=== PATIENT | female | born 1955 | race Caucasian/White ===

== ENCOUNTER 2020-04-10 08:21 | Emergency (ER) | payer BC, SELFPAY ==
--- NOTE | ~2020-04-10 | XR_ITS ---
EXAMINATION: XR chest 2V DATE: 04/10/2020 08:56 INDICATION: Intermittent chest pain and tightness TECHNIQUE: PA and lateral views of the chest were obtained. COMPARISON: Chest radiograph dated 11/16/13 FINDINGS: The lungs remain clear with no focal airspace opacities, pulmonary edema, pleural effusion or pneumot horax. The cardiomediastinal silhouette is normal. Multiple surgical clips at the right chest/axilla. Mild thoracic kyphosis with moderate spondylosis. IMPRESSION: 1. No acute cardiopulmonary disease. Reviewed, dictated and finalized at location A.
[2020-04-10 08:27] VITALS: BP 158/81; PULSE 112; RESP 18; TEMP 36.9; O2SAT 94
[2020-04-10 08:31] VITALS: PULSE 109
--- NOTE | 2020-04-10 08:34 | ECG_ITS ---
Measurements Intervals [place] Rate: 112 P: 50 DC: 124 QRS: 80 QRSD: 90 T: 43 QT: 325 QTc: 445 Interpretive Statements SINUS TACHYCARDIA MINIMAL Q WAVES- INFERIOR LEADS BASELINE ARTIFACT- III ABNORMAL ECG Electronically Signed On 04-10-2020 8:36:37 CDT by Dorian Fry D.O.
--- NOTE | 2020-04-10 08:39 | ED.CHESTPAIN ---
HPI - Chest Pain General Chief Complaint: Chest Pain Stated Complaint: cp Time Seen by Provider: 04/10/20 08:27 History of Present Illness HPI narrative: Patient presents with her granddaughter for chest pain since yesterday. She points to the lower sternum and says it goes to the right. Episodes last about 3 seconds, and occur about every 10-minute. Associated with nausea and sweats, but not shortness of breath or fever. No cough. She has had diarrhea for a week. She gauges the pain about 6 out of 10 at its greatest. She had an episode during her evaluation, and did not appear to be in any distress. She quit smoking, does not drink alcohol, and does not do marijuana. 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 She has a history of breast cancer, type 2 diabetes, and hyperlipidemia. MD complaint: chest pain Onset (ago): day(s) Timing of current episode: episodic Prior episodes: No Onset: during rest Pain location: substernal and right chest Pain radiation: none Severity: mild Quality: sharp Relieving factors: nothing Exacerbating factors: nothing Associated symptoms: nausea and diaphoresis Treatment prior to arrival: none Risk Factors Coronary artery disease risk factors: diabetes, smoking history and hyperlipidemia Pulmonary embolism risk factors: morbid obesity Related Data On Oral Contraceptives: No Home Medications Medication Instructions Recorded Confirmed citalopram 10 mg tablet 10 mg PO DAILY 09/20/19 02/11/20 Allergies Allergy/AdvReac Type Severity Reaction Status Date / Time No Known Allergies Allergy Verified 04/10/20 08:36 Review of Systems Review of Systems: Narrative: CONSTITUTIONAL: Denies fever, chills, but has had sweats. EYES: Denies visual changes, redness, or discharge. ENT: Denies rhinorrhea, congestion, sore throat, or otalgia. CARDIOVASCULAR: She has chest pain, but not palpitations, or edema. RESPIRATORY: Denies cough or dyspnea. GASTROINTESTINAL: Denies abdominal pain, nausea, vomiting, or diarrhea. GENITOURINARY: Denies dysuria or hematuria. SKIN: Denies rash or itching. MUSCULOSKELETAL: Denies back pain, joint pain, or myalgia. NEUROLOGIC: Denies headache, numbness, or weakness. . All systems reviewed & are unremarkable except as noted in HPI and below PMFSH Past Medical History Medical History Body mass index (BMI) 40.0-44.9, adult Controlled type 2 diabetes mellitus without complication Malignant neoplasm of unspecified site of left female breast Surgical History Surgical History (Updated 04/10/20 @ 08:43 by Marilee Cazares MD) History of hysterectomy History of lumpectomy of right breast Social History Social History (Updated 04/10/20 @ 08:43 by Marilee Cazares MD) Smoking status: Former smoker Second hand tobacco smoke exposure: No Smoking end date: 08/29/13 Alcohol intake: never Substance use: never Gender identity (if verbalized by the patient): Female Exam Narrative: Exam Narrative: GENERAL: Well-appearing, well-nourished, and in no acute distress. Overweight HEAD: Normocephalic, atraumatic. EYES: PERRLA and EOMI. ENT: Nares clear, no rhinorrhea or epistaxis. Mucous membranes moist. NECK: Supple. CHEST: Clear to auscultation. No respiratory distress. HEART: Regular rate and rhythm. No murmur heard. Normal peripheral pulses. ABDOMEN: Soft, nontender, nondistended, normal active bowel sounds. EXTREMITIES: Normal range of motion. No edema. SKIN: Warm, dry, no rash. NEURO: No focal deficits. Alert and oriented x3. PSYCH: Normal mood and affect. Const: General: no acute distress and alert Orientation/consciousness: patient oriented x3 Course Reevaluation(s) Reevaluation #1: Went in to check on the patient. She refused the GI cocktail. She says viscous liquids cause her to gag and vomit. She has not had a chest pain since she has been here. She does not want to wait for the 3-hour trop
[2020-04-10 08:43] LABS: Basophils Percent Auto 0.5 % (0.2-1.2); Eosinophils Percent Auto 0.6 % (0-4.4); Hematocrit 41.8 % (37.0-47.0); Hemoglobin 13.9 g/dL (12.0-15.0); Immature Granulocyte Absolute 0.03 K/mm3 (0.00-0.031); Immature Granulocyte Percent A 0.5 % (0-0.5); Lymphocytes Absolute Auto 0.81 K/mm3 (0.9-3.2); Lymphocytes Percent Auto 12.9 % (18.3-44.2); Mean Corpuscular HGB Conc 33.3 g/dl (32-36); Mean Corpuscular Volume 96.1 fl (80-100); Mean Platelet Volume 9.9 fl (7.4-10.4); Monocytes Absolute Auto 0.5 K/mm3 (0.1-0.6); Monocytes Percent Auto 8.4 % (2.6-8.5); Neutrophils Absolute Auto 4.9 K/mm3 (1.3-6.7); Neutrophils Percent Auto 77.1 % (45.5-73.1); Platelet Count Result 197 k/mm3 (150-375); Red Blood Count 4.35 M/mm3 (4.2-5.4); Red Cell Distribution Width 13.3 % (11.5-14.5); White Blood Count 6.3 K/mm3 (4.5-10.0)
[2020-04-10 08:53] LABS: Prothrombin Time 12.6 Seconds (11.1-14.7)
[2020-04-10 08:54] LABS: Partial Thromboplastin Time 29.5 SECONDS (22.3-36.8)
[2020-04-10 09:00] VITALS: PULSE 99; RESP 25; O2SAT 94
[2020-04-10 09:07] VITALS: BP 128/70; PULSE 99; RESP 26; O2SAT 94
[2020-04-10 09:09] LABS: Alanine Aminotransferase 62 U/L (4-35); Albumin Level 4.2 g/dL (3.5-5.1); Alkaline Phosphatase 138 U/L (38-126); Anion Gap 12 mmol/L (8-16); Aspartate Amino Transferase 76 U/L (14-36); Bilirubin,Total 0.5 mg/dL (0.2-1.3); Blood Urea Nitrogen 10 mg/dL (7-17); Calcium 8.9 mg/dL (8.4-10.2); Carbon Dioxide 27 mmol/L (22-30); Chloride 95 mmol/L (98-107); Estimated CRCL calculation 96 ml/min; Estimated Glomerular Filt Rate > 60; Glucose 259 mg/dL (65-105); Sodium 134 mmol/L (137-145)
[2020-04-10 09:10] LABS: Troponin I < 0.012 ng/mL (0.000-0.034)
[2020-04-10] MEDS: FAMOTIDINE 20 MG/2 ML VIAL IV PUSH (09:30)
--- NOTE | 2020-04-10 09:32 | PC.NURSE ---
Pt is refusing GI cocktail mixture at this time, states I don't have any pain, and I'm afraid that I might vomit if I take it. I have a issue with fluids .
== END 2020-04-10 09:56 | disposition home or self-care (01) ==
PROVIDERS: Emergency Provider Emergency Medicine; PCP Internal Medicine
DX: R07.89 Other chest pain (principal); E11.9 Type 2 diabetes mellitus without complications; R94.5 Abnormal results of liver function studies; R00.0 Tachycardia, unspecified; E66.9 Obesity, unspecified; Z68.41 Body mass index [BMI] 40.0-44.9, adult; Z85.3 Personal history of malignant neoplasm of breast
CPT/HCPCS: 36415; 71046; 80053; 84484; 85025; 85610; 85730; 93005; 96374; 99284; A9270

== ENCOUNTER → 2021-07-13 10:25 | Outpatient (CLI) | payer BC, SELFPAY ==
--- NOTE | ~2021-07-13 | XR_ITS ---
XR chest 2V DATE: 07/13/2021 10:38 INDICATION: Shortness of breath for months TECHNIQUE: PA and lateral chest COMPARISON: 04/10/2020 2 view chest FINDINGS: Normal heart size. No hilar or mediastinal enlargement. No pulmonary infiltrate or consolid ation, pleural effusion or pulmonary vascular congestion or pneumothorax. There is mild dextroscoliosis of the thoracic spine and degenerative spurring. Surgical clips, right axillary area, consistent with axillary node dissection. Diffuse osteopenia. IMPRESSION: No active cardiopulmonary disease Reviewed, dictated and finalized at location A. ING WORKER
== END ==
PROVIDERS: PCP Family Medicine; Visit Provider Family Medicine
DX: R06.02 Shortness of breath (principal)
CPT/HCPCS: 71046

== ENCOUNTER 2021-07-31 13:23 | Emergency (ER) | payer BC, SELFPAY ==
[2021-07-31] VITALS (8 sets, daily range): BP systolic 128–151; BP diastolic 63–73; PULSE 80–93; RESP 14–20; TEMP 36.1–37; O2SAT 89–97
--- NOTE | ~2021-07-31 | CT_ITS ---
EXAMINATION:CT diagnostic chest wo con DATE: 07/31/2021 21:23 INDICATION: Shortness of breath and cough. TECHNIQUE: Computed tomography (CT) of the chest was performed without intravenous contrast. Automate d exposure control and iterative reconstruction technique were employed. The dose-length product (DLP ) was 915.22 mGy-cm. COMPARISON: Chest CT 04/02/2015 FINDINGS: There is mild emphysema. There is mild scarring at the lung apices. No pleural effusion. Th e heart size is normal. There are coronary artery calcifications. No pericardial effusion. There is d iffuse hepatic steatosis. There is a 3.8 cm mass containing fat in right adrenal gland, consistent wi th a myelolipoma. There are surgical clips in right axilla. There is moderate thoracic spondylosis. T here is a hemangioma in L1 vertebral body. IMPRESSION: 1. Mild emphysema. Reviewed, dictated and finalized at location A. INAL CARMAN IMPRESSION: 1. Mild emphysema.
--- NOTE | ~2021-07-31 | XR_ITS ---
EXAMINATION: XR chest 2V DATE: 07/31/2021 18:30 INDICATION: Shortness of breath. TECHNIQUE: Frontal and lateral views of the chest were obtained. COMPARISON: Chest 2 views 07/13/2021, chest CT 04/02/2015 FINDINGS: The chest demonstrates clear lungs without pneumonia, pleural effusion, or pneumothorax. Th e heart size is normal. There are surgical clips in right axilla. IMPRESSION: 1. No acute cardiopulmonary disease. Reviewed, dictated and finalized at location A. LING MACHINE OPERATOR
--- NOTE | 2021-07-31 18:20 | ECG_ITS ---
Measurements Intervals [place] Rate: 80 P: 49 UT: 155 QRS: 60 QRSD: 93 T: 31 QT: 371 QTc: 428 Interpretive Statements SINUS RHYTHM LOW QRS VOLTAGE IN PRECORDIAL LEADS CONSIDER INFERIOR INFARCT, AGE INDETERMINATE BASELINE WANDER- V1, V6 ABNORMAL ECG Electronically Signed On 07-31-2021 20:10:12 AUDIOLOGIST by Dorian Fry D.O.
--- NOTE | 2021-07-31 18:22 | ED.SOB ---
HPI - SOB/Dyspnea General Chief Complaint: Shortness of Breath/Dyspnea Stated Complaint: sob Time Seen by Provider: 07/31/21 18:12 Source: patient, RN notes reviewed and old records reviewed Mode of arrival: ambulatory Limitations: no limitations History of Present Illness HPI Narrative: This is a 65 year old female former smoker who presents for evaluation of shortness of breath. She has been short of breath for over 1 month. She is short of breath all the time and it is worse at night. She was unable go to sleep last night and lay flat due to her shortness of breath. She reports having to walk around last night. She also states she is short of breath with exertion. She denies having chest pain but she feels like she can not take a deep breath. She denies fever, chills, night sweats, weight gain or weight loss. She thinks symptoms started around the time she received her covid vaccination. She was evaluated by her PCP 2 weeks ago for her symptoms and she was prescribed an albuterol inhaler. Her symptoms having continue to worsen. She denies leg swelling or calf pain. She has mild cough. Related Data Allergies Allergy/AdvReac Type Severity Reaction Status Date / Time No Known Allergies Allergy Verified 07/13/21 10:06 Review of Systems Review of Systems: All systems reviewed & are unremarkable except as noted in HPI and below PMFSH Past Medical History Medical History (Updated 08/01/21 @ 00:01 by Renny Live) Body mass index (BMI) 40.0-44.9, adult Controlled type 2 diabetes mellitus without complication Malignant neoplasm of unspecified site of left female breast Surgical History Surgical History History of hysterectomy History of lumpectomy of right breast Family History Family History Other Diabetes mellitus Social History Social History Smoking status: Former smoker Second hand tobacco smoke exposure: No Smoking end date: 08/29/13 Alcohol intake: never Substance use: never Gender identity (if verbalized by the patient): Female Exam Const: General: alert Nutritional Appearance: obese Orientation/consciousness: patient oriented x3 HENMT: Head: normocephalic and atraumatic Face and sinus: normal facial exam, sinuses nontender and face symmetric Mouth: Yes Normal oral and palatal mucosa present, Yes lip normal, Yes oropharynx normal and Yes moist mucous membranes Throat: posterior oropharynx normal, tonsils normal and uvula midline Eyes: EOM: EOMs intact bilaterally Chest: Chest palpation & inspection: normal inspection of the chest Resp: Effort & Inspection: normal respiratory effort, no retractions and no use of accessory muscles GI: Inspection: distended GI Palp: Yes Soft to palpation, No Tenderness to palpation present (GI) and No Guarding due to palpation present (GI) Auscultation: normal bowel sounds Skin: General skin exam: normal color Rashes: no rashes Neuro: General: patient oriented x3, moves all extremities and CN's II-XI intact bilaterally Extrem: General: normal to inspection Psych: Mental Status: mental status grossly normal Affect: normal affect Course Reevaluation(s) Reevaluation #1: I Discussed with patient CT findings. She will need evaluation for COPD. She is not using albuterol regularly. She will start using and we will start steroids. She will follow up with PCP on Tuesday. Date: 07/31/21 Time: 21:42 Vital Signs Vital signs: Vital Signs Temperature 97.0 F L 07/31/21 13:36 Pulse Rate 80 07/31/21 13:36 Respiratory Rate 16 07/31/21 13:36 Blood Pressure 144/63 H 07/31/21 13:36 Pulse Oximetry 95 07/31/21 13:36 Temperature 98.6 F 07/31/21 17:44 Pulse Rate 81 07/31/21 21:27 Respiratory Rate 14 07/31/21 21:27 Blood Pressure 150/68 H 07/31/21 21:27 Pulse
--- NOTE | 2021-07-31 19:10 | PC.NURSE ---
Assumed care of pt at this time. Pt alert and upright on stretcher, no pain.
[2021-07-31 19:57] LABS: INR 1.1; Partial Thromboplastin Time 22.3 SECONDS (22.3-36.8)
[2021-07-31 20:00] LABS: D Dimer 0.32 ug/mL (<0.48)
[2021-07-31 20:10] LABS: Alanine Aminotransferase 36 U/L (4-35); Albumin Level 4.7 g/dL (3.5-5.1); Alkaline Phosphatase 165 U/L (38-126); Anion Gap 7 mmol/L (8-16); Aspartate Amino Transferase 30 U/L (14-36); Bilirubin,Total 0.5 mg/dL (0.2-1.3); Blood Urea Nitrogen 9 mg/dL (7-17); Calcium 9.6 mg/dL (8.4-10.2); Carbon Dioxide 36 mmol/L (22-30); Chloride 92 mmol/L (98-107); Estimated CRCL calculation 76 ml/min; Estimated Glomerular Filt Rate > 60; Glucose 130 mg/dL (65-110); Sodium 135 mmol/L (137-145)
[2021-07-31 20:21] LABS: NT Pro B Type Natriuretic Pept 65 pg/mL (5-100); Troponin I < 0.012 ng/mL (0.000-0.034)
[2021-07-31 20:56] LABS: Alveolar/Arterial O2 Gradient 30.3 mmHg; Base Excess ABG 4.6 mEq/l (+/-2.0); Carboxyhemoglobin 1.2 % THb (0-2.0); Fractional Inspired Oxygen 21 %; HCO3 ABG 29.6 mEq/l (22.0-26.0); Methemoglobin ABG 0.1 %THb (0-1.5); Oxygen Saturation ABG 93.3 % (95.0-100.0); PCO2 ABG 45.3 mmHg (35.0-45.0); PO2 ABG 65.2 mmHg (80.0-100.0); Reduced Hemoglobin 6.7 %THb (0-5.0); Total Hemoglobin 14.7 g/dL (12.0-18.0); pH ABG 7.433 (7.350-7.450)
[2021-07-31 20:57] LABS: Device ROOM AIR; Modified Allen's Test Pass; Site Drawn LEFT RADIAL
[2021-07-31 20:58] LABS: Basophils Percent Auto 0.3 % (0.2-1.2); Eosinophils Absolute Auto 0.1 K/mm3 (0-0.3); Eosinophils Percent Auto 1.2 % (0-4.4); Hematocrit 43.5 % (37.0-47.0); Hemoglobin 13.4 g/dL (12.0-15.0); Immature Granulocyte Absolute 0.05 K/mm3 (0.00-0.031); Immature Granulocyte Percent A 0.4 % (0-0.5); Lymphocytes Absolute Auto 1.78 K/mm3 (0.9-3.2); Lymphocytes Percent Auto 15.1 % (18.3-44.2); Mean Corpuscular HGB Conc 30.8 g/dl (32-36); Mean Corpuscular Hemoglobin 31.9 pg (26-34); Mean Corpuscular Volume 103.6 fl (80-100); Mean Platelet Volume 9.2 fl (7.4-10.4); Monocytes Absolute Auto 0.7 K/mm3 (0.1-0.6); Monocytes Percent Auto 5.7 % (2.6-8.5); Neutrophils Absolute Auto 9.1 K/mm3 (1.3-6.7); Neutrophils Percent Auto 77.3 % (45.5-73.1); Platelet Count Result 274 k/mm3 (150-375); Red Cell Distribution Width 13.2 % (11.5-14.5); White Blood Count 11.8 K/mm3 (4.5-10.0)
== END 2021-07-31 22:14 | disposition home or self-care (01) ==
PROVIDERS: Emergency Provider General Practice; PCP Internal Medicine
DX: R06.00 Dyspnea, unspecified (principal); J43.9 Emphysema, unspecified; E11.9 Type 2 diabetes mellitus without complications; Z87.891 Personal history of nicotine dependence; Z85.3 Personal history of malignant neoplasm of breast; Z90.710 Acquired absence of both cervix and uterus
CPT/HCPCS: 36415; 36600; 71046; 71250; 80053; 82375; 82805; 83050; 83880; 84484; 85025; 85380; 85610; 85730; 93005; 99284

== ENCOUNTER 2021-08-28 08:07 | Outpatient (CLI) | payer BC, SELFPAY ==
--- NOTE | 2021-08-28 11:52 | WPDPFTINT ---
PFT Procedure Performed PFT Procedure Performed Spirometry with Pre/Post Bronchodilator Plethysmography (Lung Vol) Diffusing Cap (DLCO) Flow Vol Loop PFT Interpretation This is a pulmonary function test with pre and post-bronchodilator spirometry, plethysmography and diffusing capacity. The test was performed and results interpreted in accordance with the 2019 and 2005 ATS/ERS Task Force guidelines respectively using the Global Lung Function Initiative-2012 reference equations. Patient demonstrated good effort and cooperation. Reproducibility criteria were met. The quality of the pre bronchodilator spirometry maneuver was Grade A and post bronchodilator spirometry maneuver was Grade A. Findings: Spirometry: there is decreased maximal expiratory airflow at low lung volumes with a mildly concaved expiratory flow tracing. The pre bronchodilator FVC is 2.16 L, 62% predicted. The pre bronchodilator FEV1 is 1.65 L, 61% predicted. The FEV1: FVC ratio 76%. The post bronchodilator FVC is 2.20 L, representing a 2% increase. The post bronchodilator FEV1 is 1.66 L, representing 1% increase. The post bronchodilator FEV the 1: FVC ratio 75%. Plethysmography: The total lung capacity is 4.55 L, 80% predicted. The functional residual capacity is 2.73 L, 84% predicted. The residual volume is 2.33 L, 102% predicted. Diffusion capacity: The absolute diffusion capacity is 19.7, 87% predicted. The diffusing capacity corrected for alveolar volume is 5.75, 137% predicted. Impression: There is a combined obstructive and restrictive ventilatory abnormality. There are no guidelines to assign the severity of obstruction and restriction with a combined abnormality. In my opinion, given the mildly concave expiratory flow tracing and normal FEV1: FVC ratio and mild restrictive abnormality I would state there is a mild obstructive abnormality and a mild restrictive abnormality resulting in a moderately decreased FEV1. There is no significant improvement after inhaling a single dose of albuterol. The absolute diffusing capacity is normal and is increased when corrected for alveolar volume. There are no prior studies for comparison
== END 2021-08-28 08:08 | disposition home or self-care (01) ==
PROVIDERS: PCP Internal Medicine; Visit Provider Internal Medicine
DX: R06.02 Shortness of breath (principal); R94.2 Abnormal results of pulmonary function studies
CPT/HCPCS: 94060; 94726; 94729

== ENCOUNTER 2021-09-10 09:32 | Outpatient (CLI) | payer BC, SELFPAY ==
--- NOTE | ~2021-09-10 | XR_ITS ---
EXAMINATION: XR barium swallow modified EXAM DATE: 09/10/2021 10:06 INDICATION: R13.10 - Dysphagia, unspecified. TECHNIQUE: Modified barium esophagram was performed by speech pathologist with radiologist Dr. Raymundo Moreno present to administered fluoroscopy. Speech pathologist administered barium in varying consis tencies as per speech pathologist documentation. This was recorded on tape. There was total fluorosc opic time of 0.7 minutes. The DAP for this procedure was 1.13 Gycm2. A total of 1 images sent to [facility] from the exam. FINDINGS: Oral stage: Adequate function. Pharyngeal phase: Adequate function. Laryngeal penetration: None. Aspiration: None. Laryngeal sensitivity: Present. IMPRESSION: Normal modified esophagram exam. Please refer to speech pathologist findings and specifi c feeding recommendations. Reviewed, dictated and finalized at location A. ING AND JOINING SUPERVISOR IMPRESSION: Normal modified esophagram exam. Please refer to speech pathologis t findings and specific feeding recommendations.
--- NOTE | 2021-09-11 07:59 | STOPEVAL ---
MODIFIED BARIUM SWALLOW EVALUATION: Thank you for referring Amy Javed to [facility].? Attending Provider: Lizandro Sosa MD Fax #: [phone] Evaluation Outpatient Past Medical History Past Medical History Source of Past Medical History Patient Gastrointestinal History Hx Gastroesophageal Reflux Disease Yes Modified Barium Swallow Evaluation Recent Swallowing History Reports Dysphagia Yes: choking sensation but not always during eating Duration of Dysphagia few months Other Factors Impacting Dysphagia None History of Pneumonia No Reported Difficult Consistencies Unable to Identify Intake Method Prior to Swallow Oral Evaluation Diet Prior to Swallow Evaluation Regular, Level 7 Liquid Consistency Prior to Swallow Thin (0) Evaluation Consistency Solid Consistency Method of Presentation Spoon Oral Preparatory Symptoms None Oral Phase Symptoms None Pharyngeal Phase Symptoms None Severity of Vallecular Residue None - 0% No Residue Severity of Pyriform Sinus Residue None - 0% No Residue 8 Point Laryngeal Penetration-Aspiration Material Does Not Enter Airway Scale Cervical/Esophageal Symptoms None Mixed Consistency Method of Presentation Spoon Oral Preparatory Symptoms None Oral Phase Symptoms None Pharyngeal Phase Symptoms None Severity of Vallecular Residue None - 0% No Residue Severity of Pyriform Sinus Residue None - 0% No Residue 8 Point Laryngeal Penetration-Aspiration Material Does Not Enter Airway Scale Cervical/Esophageal Symptoms None Pureed Consistency Method of Presentation Spoon Oral Preparatory Symptoms None Oral Phase Symptoms None Pharyngeal Phase Symptoms None Severity of Vallecular Residue None - 0% No Residue Severity of Pyriform Sinus Residue None - 0% No Residue 8 Point Laryngeal Penetration-Aspiration Material Does Not Enter Airway Scale Cervical/Esophageal Symptoms None Thin Uncontrolled 2 Method of Presentation Straw Oral Preparatory Symptoms None Oral Phase Symptoms None Pharyngeal Phase Symptoms Within Functional Limits, Laryngeal Penetration Severity of Vallecular Residue None - 0% No Residue 8 Point Laryngeal Penetration-Aspiration Material Enters the Airway, Scale Remains Above Vocal Folds, is Ejected Pharyngeal Phase Comments flash penetration: normally occurring as it was immediately cleared without risk of aspiration Cervical/Esophageal Symptoms None Thin Uncontrolled 1 Method of Presentation Cup Oral Preparatory Symptoms None
== END 2021-09-10 09:33 | disposition home or self-care (01) ==
LOC: ANHIMG 09:33
PROVIDERS: PCP Internal Medicine; Visit Provider Internal Medicine
DX: R13.10 Dysphagia, unspecified (principal)
CPT/HCPCS: 92611

== ENCOUNTER → 2022-01-27 12:17 | Outpatient (CLI) | payer BC, SELFPAY ==
--- NOTE | ~2022-01-27 | XR_ITS ---
XR knee LT min 4V 01/27/2022 12:55 Indication: Left knee pain Procedure: 5 views left knee Comparison: No prior studies Findings: There is mild tricompartment osteoarthritis. Small joint effusion. Osteopenia. No acute fra cture or traumatic malalignment. No foreign bodies. Impression: 1: Mild osteoarthritis of the left knee. 2: Small knee effusion. Reviewed, dictated and finalized at location A. Impression: 1: Mild osteoarthritis of the left knee. 2: Small knee effusion.
== END ==
PROVIDERS: PCP Internal Medicine; Visit Provider Internal Medicine
DX: M17.12 Unilateral primary osteoarthritis, left knee (principal); M25.462 Effusion, left knee
CPT/HCPCS: 73564

== ENCOUNTER 2023-08-25 00:08 | Day surgery (SDC) | payer BC, SELFPAY ==
[2023-08-03 14:28] VITALS: BMI 40.4
--- NOTE | 2023-08-23 12:00 | SUR.PREOP ---
Patient called regarding upcoming procedure. Reviewed preop instructions, appointment times, and procedure prep.
--- NOTE | 2023-08-24 18:10 | PM.HPGS ---
History of Present Illness History of Present Illness Consent: Risks, benefits, and alternatives have been discussed and questions answered. Patient agrees to proceed with procedure. Chief complaint: hx colon polyps, hx of colon ca Narrative: Amy Javed is a 67 year old female Referred for colon cancer screening. In 2016 she had 8 polyps removed, Most of which were adenomatous. Review of Systems Review of Systems: All systems reviewed & are unremarkable except as noted in HPI and below PMFSH Past Medical History Medical History Body mass index (BMI) 40.0-44.9, adult Controlled type 2 diabetes mellitus without complication Malignant neoplasm of unspecified site of left female breast Surgical History Surgical History History of hysterectomy History of lumpectomy of right breast Family History Family History Other Diabetes mellitus Social History Social History Years smoked: 40 Smoking status: Former smoker Tobacco type: cigarettes Second hand tobacco smoke exposure: No Smoking end date: 08/29/13 Alcohol intake: never Substance use: never Substance use type: does not use Current Housing: Decline to Answer Concerned About Future Housing: Decline to Answer Difficulty Paying Gas/Electric Bills: Decline to Answer Difficulty Paying for Meds: Decline to Answer Currently Unemployed: Decline to Answer Education: Decline to Answer Difficulty w/ Childcare or Family Care: Decline to Answer Living arrangements: with family Gender identity (if verbalized by the patient): Female Spiritual care concerns: No Meds Home Medications and Allergies Home Medications Medication Instructions Recorded Confirmed Type blood sugar diagnostic (Contour #200 ea 11/08/19 08/25/23 Rx Next Test Strips) lancets 28 gauge (1st Tier Unilet #200 ea 06/23/20 08/25/23 Rx ComforTouch Lancet) famotidine 20 mg tablet (Pepcid) 20 mg PO DAILY #30 tabs 06/24/20 08/25/23 Rx citalopram 10 mg tablet 10 mg PO DAILY #90 tabs 06/14/23 08/25/23 Rx buspirone 10 mg tablet 10 mg PO BID #180 tabs 07/06/23 08/25/23 Rx metformin 1,000 mg tablet 1,000 mg PO BID #180 tabs 07/06/23 08/25/23 Rx dulaglutide 1.5 mg/0.5 mL 1.5 mg (0.5 mL) subcut WEEKLY #2 mL 07/18/23 08/25/23 Rx subcutaneous pen injector albuterol sulfate 90 mcg/actuation 2 puff inhalation Q4H PRN 08/03/23 08/25/23 History aerosol inhaler Shortness Of Breath aspirin 81 mg tablet 81 mg PO DAILY 08/03/23 08/25/23 History atorvastatin 40 mg tablet 40 mg PO DAILY #90 tabs 08/05/23 08/25/23 Rx Allergies Allergy/AdvReac Type Severity Reaction Status Date / Time No Known Allergies Allergy Verified 08/25/23 08:09 Exam Resp: Auscultation: clear to auscultation bilaterally Cardio: Rate: regular rate Rhythm: regular rhythm GI: GI Palp: Yes Soft to palpation and No Tenderness to palpation present (GI) Assessment and Plan Assessment and plan (1) Colon cancer screening: Code(s): Z12.11 - Encounter for screening for malignant neoplasm of colon Status: Acute Assessment and Plan: Colonoscopy with possible biopsy or polypectomy or cautery or injection of substances.
[2023-08-25 08:10] VITALS: BP 158/88; PULSE 113; RESP 20; TEMP 36.8; O2SAT 90; BMI 41.4
--- NOTE | 2023-08-25 08:14 | SUR.PREOP ---
Notified Dr. Moya of O2 sat of 89-92% on room air.
[2023-08-25 08:18] LABS: Glucose Point of Care 140 mg/dl (65-105)
[2023-08-25] MEDS: LACTATED RINGERS 1,000 ML 150 ML IV CONT (08:23)
--- NOTE | 2023-08-25 08:50 | WPDANESEPPF ---
Anes - Initial Pre Proc Eval Procedure: Operation Date: 08/25/23 09:30 Proposed Procedures p Colonoscopy - Yordan Trujillo MD Date/Time: 08/25/23 08:50 Surgeon: Yordan Trujillo MD Pre Op Diagnosis: hx colon polyps, hx of colon ca Patient Data Age: 67 Gender: F Height: 1.73 m Weight: 123.7 kg Last Vital Signs Temp 98.2 F 08/25/23 08:10 Pulse 113 H 08/25/23 08:10 Resp 20 08/25/23 08:10 BP 158/88 H 08/25/23 08:10 Pulse Ox 90 08/25/23 08:10 O2 Del Method Room Air 08/25/23 08:10 Allergies Allergy/AdvReac Type Severity Reaction Status Date / Time No Known Allergies Allergy Verified 08/25/23 08:09 Home Medications Medication Instructions Recorded Confirmed Type blood sugar diagnostic (Contour #200 ea 11/08/19 08/25/23 Rx Next Test Strips) lancets 28 gauge (1st Tier Unilet #200 ea 06/23/20 08/25/23 Rx ComforTouch Lancet) famotidine 20 mg tablet (Pepcid) 20 mg PO DAILY #30 tabs 06/24/20 08/25/23 Rx citalopram 10 mg tablet 10 mg PO DAILY #90 tabs 06/14/23 08/25/23 Rx buspirone 10 mg tablet 10 mg PO BID #180 tabs 07/06/23 08/25/23 Rx metformin 1,000 mg tablet 1,000 mg PO BID #180 tabs 07/06/23 08/25/23 Rx dulaglutide 1.5 mg/0.5 mL 1.5 mg (0.5 mL) subcut WEEKLY #2 mL 07/18/23 08/25/23 Rx subcutaneous pen injector albuterol sulfate 90 mcg/actuation 2 puff inhalation Q4H PRN 08/03/23 08/25/23 History aerosol inhaler Shortness Of Breath aspirin 81 mg tablet 81 mg PO DAILY 08/03/23 08/25/23 History atorvastatin 40 mg tablet 40 mg PO DAILY #90 tabs 08/05/23 08/25/23 Rx Laboratory Tests 08/25/23 08:16 POC Capillary Glucose 140 H mg/dl (65-105) Patient hx anesthesia problems: none Family hx anesthesia problems: none Results Review: All pre-operative results and documents have been reviewed as part of the pre-operative evaluation. [facility] Past Medical History Medical History Body mass index (BMI) 40.0-44.9, adult Controlled type 2 diabetes mellitus without complication Malignant neoplasm of unspecified site of left female breast Surgical History Surgical History History of hysterectomy History of lumpectomy of right breast Family History Family History Other Diabetes mellitus Social History Social History Years smoked: 40 Smoking status: Former smoker Tobacco type: cigarettes Second hand tobacco smoke exposure: No Smoking end date: 08/29/13 Alcohol intake: never Substance use: never Substance use type: does not use Current Housing: Decline to Answer Concerned About Future Housing: Decline to Answer Difficulty Paying Gas/Electric Bills: Decline to Answer Difficulty Paying for Meds: Decline to Answer Currently Unemployed: Decline to Answer Education: Decline to Answer Difficulty w/ Childcare or Family Care: Decline to Answer Living arrangements: with family Gender identity (if verbalized by the patient): Female Spiritual care concerns: No Anes - Eval Final PreProcedure Day of Procedure 08/25/23 08:50 Patient weight: morbidly obese Heart: regular rate and rhythm Lungs: clear to auscultation Airway: Mallampati scale class III Neurological: alert and oriented Last oral intake: >/= 8 hours ASA classification: III Emergent: no Anesthetic plan: proceed Anesthesia type and monitoring: general GIVS and standard monitoring Results Review: All pre-operative results and documents have been reviewed as part of the pre-operative evaluation. Informed Consent: The patient's anesthetic plan and its attendant risks and benefits were discussed with the patient/family/POA. Questions were solicited and answers provided to the satisfaction of the patient/family/POA.
[2023-08-25 09:42] VITALS: BP 121/72; PULSE 96; RESP 24; O2SAT 96
[2023-08-25 09:52] VITALS: BP 130/71; PULSE 92; RESP 28; O2SAT 94
[2023-08-25 10:02] VITALS: BP 136/83; PULSE 98; RESP 22; O2SAT 93
== END 2023-08-25 10:05 | disposition home or self-care (01) ==
PROVIDERS: PCP Family Medicine; Visit Provider Internal Medicine Gastroenterology
PROC: 0DJD8ZZ Inspection of Lower Intestinal Tract, Via Natural or Artificial Opening Endoscopic (ICD-10-PCS; CPT 45378; principal; 2023-08-25 09:30)
DX: Z12.11 Encounter for screening for malignant neoplasm of colon (principal); K63.5 Polyp of colon; E11.9 Type 2 diabetes mellitus without complications; E66.01 Morbid (severe) obesity due to excess calories; Z68.41 Body mass index [BMI] 40.0-44.9, adult; Z79.84 Long term (current) use of oral hypoglycemic drugs; Z79.85 Long-term (current) use of injectable non-insulin antidiabetic drugs; Z79.51 Long term (current) use of inhaled steroids; Z79.82 Long term (current) use of aspirin; Z86.010 Personal history of colon polyps; Z85.038 Personal history of other malignant neoplasm of large intestine; Z85.3 Personal history of malignant neoplasm of breast; Z87.891 Personal history of nicotine dependence
CPT/HCPCS: 45380; 82948; 88305; J2704; J7120

== ENCOUNTER 2024-01-03 08:43 | Outpatient (CLI) | payer MEDICARE, SELFPAY ==
[2024-01-10 19:06] VITALS: BMI 39.5
--- NOTE | 2024-01-10 19:06 | WPDSLEEPSTUD ---
Sleep Study Date of Study: 01/03/24 Ordering Provider: Devendra Jc DO Interpreting Physician: Karolina Ronquillo DO Sleep Study Type: Split Polysomnogram Height: 1.73 m Weight: 117.934 kg Body Mass Index: 39.5 Neck Circumference (inches): 19.25 [place]: 7 Reason for Sleep Study Snoring, daytime hypersomnia Sleep History The patient is a 68-year-old female with diabetes, COPD, obesity and history of tobacco use that had a sleep study ordered by her primary care physician for evaluation of sleep apnea. The patient frequently awakens from sleep short of breath. She denies awakening at night with heartburn, belching or cough. She snores frequently by is rarely loud enough that others complain. She frequently has trouble sleeping when she has a cold. She frequently wakes up gasping for air throughout the night. She frequently has breathing problems at night observed by herself or others. She rarely sweats excessively at night. She rarely has heart palpitations or irregular heartbeats during the night. He frequently falls asleep during the day but never while driving. She denies sleep paralysis and cataplexy. She denies having trouble at school or work due to sleepiness. She frequently experiences vivid dreamlike scenes upon awakening or falling asleep. She occasionally feels afraid of going to sleep. She occasionally remembers her dreams. She frequently has thoughts racing through her mind. She rarely feels sad or depressed. She denies having anxiety. She frequently has muscular tension. She denies noticing parts of her body jerk. She denies kicking during the night. She frequently has crawling and aching feelings in her legs and frequently has leg pain during the night. She denies grinding her teeth during sleep and denies awakening with morning jaw pain. She is rarely bothered by pain during the day and rarely awakened by pain during the night. She occasionally wakes up feeling stiff in the morning. He rarely wakes up with sore or achy muscles. She rarely wakes up with pain in the neck, spine in other joints. She goes to bed between 12 a.m. - 3 a.m. on both weekdays and weekends. The amount of time it takes her to fall asleep is variable. She wakes up 4 times throughout the night to urinate and a can take 1-2 hours for her to fall back asleep. She wakes up between 7-8 a.m. on both weekdays and weekends. She typically gets 4-5 hours of sleep per night. She will stay in bed for 5 minutes after waking up in the morning. She currently lives with her she will consume caffeinated beverages within 2 hours of bedtime. She denies engaging in physical exercise before bedtime. She will watch television before falling asleep. She will take naps in afternoon or the evening and they are refreshing. She consumes caffeinated tea all day. She quit smoking cigarettes 12 years ago. She denies alcohol and recreational drug use. [facility] Past Medical History Medical History Acute bronchitis Body mass index (BMI) 40.0-44.9, adult Controlled type 2 diabetes mellitus without complication Malignant neoplasm of unspecified site of left female breast Surgical History Surgical History History of hysterectomy History of lumpectomy of right breast Family History Family History Other Diabetes mellitus Social History Social History Years smoked: 40 Smoking status: Former smoker Tobacco type: cigarettes Second hand tobacco smoke exposure: No Smoking end date: 08/29/13 Alcohol intake: never Substance use: never Substance use type: does not use Do You Feel Safe in your Home?: Yes Lack of Transportation: No Lack of Food: Never True Current Housing: I Have Housing Concerned Ab
== END 2024-01-04 06:12 | disposition home or self-care (01) ==
PROVIDERS: PCP Family Medicine; Visit Provider Family Medicine
DX: G47.33 Obstructive sleep apnea (adult) (pediatric) (principal); I10 Essential (primary) hypertension
CPT/HCPCS: 95811

== ENCOUNTER 2024-02-13 07:36 | Outpatient (CLI) | payer MEDICARE, SELFPAY ==
--- NOTE | 2024-02-13 07:47 | ECHO_ITS ---
Patient Info Name: Amy Javed Age: 68 years : 1955 Gender: Female Ht: 69 in Wt: 270 lbs BSA: 2.50 m2 HR: 75 bpm BP: 151 / 79 mmHg Technical Quality: Poor Exam Date: 02/13/2024 7:58 AM Exam Location: Echo Lab Patient Status: Outpatient Admit Date: 02/13/2024 Staff Ordering Physician: Devendra Jc DO Head Sulfide Operator: Jana Duran RDCS Attending Provider: Devendra Jc DO Referring Physician: Babita LAMB; Exam Type: CA echo dop color flow w con Study Info Indications G47.30 - SLEEP APNEA, UNSPECIFIED Complete two-dimensional, color flow and Doppler transthoracic echocardiogram is performed with contrast to opacify the left ventricle and to improve the deliniation of the left ventricle endocardial borders. Contrast/Agitated Saline Contrast/Ag. Saline: Definity Amount: 7.00 ml Administered By: Jana Duran RDCS New IV Access: Dorsum of Hand and Left Site Condition: No extravasation, Site dressing applied and IV removed Reason for Poor Study: patient body habitus Summary 1. Technically suboptimal study due to poor sonographic images. 2. Definity contrast administered improved wall motion interpretation. 3. Left ventricular chamber dimension is normal. 4. Left ventricular systolic function is normal, estimated at 60-65%. 5. The left ventricular diastolic function is grade I diastolic dysfunction. 6. E/e' 14 is mildly elevated. 7. Left atrial chamber dimension is mildly enlarged. 8. There is mild aortic valve sclerosis. 9. No pulmonary hypertension, estimated pulmonary arterial systolic pressure is 21 mmHg. Left Ventricle E/e' 14 is mildly elevated. Technically suboptimal study due to poor sonographic images. Definity contrast administered improved wall motion interpretation. Left ventricular chamber dimension is normal. Left ventricular systolic function is normal, estimated at 60-65%. The left ventricular diastolic function is grade I diastolic dysfunction. Right Ventricle Right ventricular chamber dimension is normal. Right ventricular systolic function is normal. Left Atria Left atrial chamber dimension is mildly enlarged. Right Atria Right atrial chamber dimension is normal. Aortic Valve The aortic valve is trileaflet. There is mild aortic valve sclerosis. There is no aortic valve stenosis. There is no aortic valve regurgitation. Pulmonic Valve There is no pulmonic regurgitation. Mitral Valve There is no mitral valve stenosis. There is no mitral valve regurgitation. Tricuspid Valve There is no tricuspid valve regurgitation. No pulmonary hypertension, estimated pulmonary arterial systolic pressure is 21 mmHg. Pericardium/Pleural There is no pericardial effusion. Inferior Vena Cava Normal inferior vena cava with >50% collapse upon inspiration consistent with normal right atrial pressure, 5 mmHg. Aorta The aortic root size at the sinus of Valsalva is normal. Left Ventricular Outflow Tract Name Value Normal LVOT 2D LVOT Diameter 1.92 cm LVOT Doppler LVOT Peak Gradient 7 mmHg LVOT Mean Gradient 4 mmHg LVOT VTI 28.07 cm
--- NOTE | 2024-02-13 07:48 | ECG_ITS ---
Test Date: 2024-02-13 08:05:47 Measurements Intervals [place] Rate: 90 P: 68 TX: 157 QRS: 65 QRSD: 93 T: 37 QT: 352 QTc: 432 Interpretive Statements SINUS RHYTHM LOW QRS VOLTAGE IN PRECORDIAL LEADS [QRS DEFLECTION < 1.0 mV IN CHEST LEADS] BORDERLINE ECG No previous ECG available for comparison Electronically Signed On 02-13-2024 15:18:53 CDT by Everardo Valadez M.D.
[2024-02-13] MEDS: PERFLUTREN LIPID MICROSPHERES 1.5 ML VIAL DILUTED TO 10 ML TOTAL VOLUME IV PUSH (08:55)
--- NOTE | 2024-02-14 09:56 | IVDEFINITY ---
Prior to administration of IV Definity the patient was educated on the risks and benefits of the imaging enhancing agent including potential adverse side effects. The patient verbalized understanding. Allergies were verified. No exclusion criteria were identified and at least one of the following inclusion criteria were met: 1) physician request, 2) patient technically difficult to image (per the [place] [employer] Echocardi[employer] guidelines of two or more segments not discernable within the apical view), or 3) questionable left ventricular function. ?
== END 2024-02-13 07:37 | disposition home or self-care (01) ==
LOC: ANHCARD 07:38
PROVIDERS: PCP Family Medicine; Visit Provider Family Medicine
DX: G47.33 Obstructive sleep apnea (adult) (pediatric) (principal); R00.0 Tachycardia, unspecified; R94.31 Abnormal electrocardiogram [ECG] [EKG]
CPT/HCPCS: 93005; C8929; Q9957

== ENCOUNTER 2025-02-12 09:18 | Outpatient (CLI) | payer MEDICARE, SELFPAY ==
--- OUTSIDE RECORDS SUMMARY | 2025-02-12 09:59 | XMS_ITS | Clinical Summary ---
Author Organization [facility] Address [address] [place] [address] Care Team Providers Care Patient Support Partner Name Role Phone Unavailable Primary Care Provider Unavailabl e Social History Tobacco Use Types Packs/Day Years Used Date Smoking Tobacco: Never Assessed Sex and Gender Information Value Date Recorded Sex Assigned at Not on file Legal Sex Male 11:04 AM CDT Gender Identity Not on file Sexual Orientation Not on file Plan of Treatment Health Maintenance Due Date Last Done Comments DTAP/TDAP/TD VACCINES (1 - Tdap) 1974 COLORECTAL SCREENING 2000 Colorectal Cancer Screening 2000 FIT-DNA Q 3 years 2000 FIT/FOBT Q 1 year 2000 Flex Sig/CT Colonography Q 5 years 2000 PNEUMOCOCCAL VACCINE 50+ YEARS (1 of 1 - PCV) 08/29/19 06 ZOSTER VACCINE (1 of 2) 2005 INFLUENZA VACCINE (#1) 2024 RSV VACCINE (60+ or ) (1 - 1-dose 75+ series) 2030
[2025-02-12 19:20] LABS: Hematocrit 42.8 % (37.0-47.0); Hemoglobin 13.7 g/dL (12.0-15.0); Mean Corpuscular Hemoglobin 31.1 pg (26-34); Mean Corpuscular Volume 97.1 fl (80-100); Platelet Count Result 506 k/mm3 (150-375); Red Blood Count 4.41 M/mm3 (4.2-5.4); Red Cell Distribution Width 12.8 % (11.5-14.5); White Blood Count 10.7 K/mm3 (4.5-10.0)
[2025-02-12 19:42] LABS: Alanine Aminotransferase 39 U/L (6-35); Albumin Level 4.5 g/dL (3.5-5.1); Alkaline Phosphatase 155 U/L (38-126); Anion Gap 9 mmol/L (4-12); Aspartate Amino Transferase 41 U/L (14-36); Bilirubin,Total 0.6 mg/dL (0.2-1.3); Blood Urea Nitrogen 10 mg/dL (7-17); Calcium 9.7 mg/dL (8.4-10.2); Carbon Dioxide 32 mmol/L (22-30); Chloride 94 mmol/L (98-107); Cholesterol 172 mg/dL (0-200); Estimated Glomerular Filt Rate > 60; Glucose 308 mg/dL (65-110); HDL Direct 52 mg/dL; Potassium 5.3 mmol/L (3.4-5.0); Sodium 135 mmol/L (137-145); Total Protein 7.7 g/dL (6.3-8.2); Triglycerides 240 mg/dL (<150)
[2025-02-12 19:53] LABS: LDL Cholesterol Direct 75 mg/dL
[2025-02-12 21:12] LABS: Hemoglobin A1C 9.6 % (<5.7)
== END 2025-02-12 09:19 | disposition home or self-care (01) ==
LOC: ANHGOSHLAB 09:19
PROVIDERS: PCP Family Medicine; Visit Provider Family Medicine
DX: E11.65 Type 2 diabetes mellitus with hyperglycemia (principal); F41.9 Anxiety disorder, unspecified; E78.2 Mixed hyperlipidemia; Z68.41 Body mass index [BMI] 40.0-44.9, adult
CPT/HCPCS: 36415; 80053; 80061; 83036; 84443; 85027